=== PATIENT | male | born 1965 | race Caucasian/White ===

== ENCOUNTER 2022-10-18 12:21 | Emergency (ER) | payer OTHER ==
[~2022-10-18] VITALS: Ht 185.4 cm; Wt 95.5 kg
[2022-10-18 13:21] LABS: BASO % 0.3 % (0.0-1.0); EOS # 0.1 10^3/uL (0.0-0.5); EOS % 1.9 % (0.0-3.0); HEMATOCRIT 47.9 % (42.0-52.0); HEMOGLOBIN 15.5 g/dl (13.5-17.5); LYMPH # 1.5 10^3/uL (1.5-5.0); MEAN CORPUSCULAR HEMOGLOBIN 28.4 pg (27.0-33.0); MEAN CORPUSCULAR HGB CONC 32.4 g/dl (32.0-36.5); MEAN CORPUSCULAR VOLUME 87.9 fl (80.0-96.0); MONO # 0.4 10^3/uL (0.0-0.8); MONO % 6.4 % (2.0-8.0); NEUTROPHILS # 4.3 10^3/uL (1.5-8.5); NEUTROPHILS % 67.1 % (36.0-66.0); PLATELET COUNT, AUTOMATED 195 10^3/uL (150-450); RED BLOOD COUNT 5.45 10^6/uL (4.30-6.10); WHITE BLOOD COUNT 6.4 10^3/uL (4.0-10.0)
[2022-10-18] MEDS ORDERED: NS 1,000 ML IV ONE (13:35)
[2022-10-18] MEDS ORDERED: NS 1,000 ML IV SCH (13:35)
[2022-10-18 13:52] LABS: BLOOD UREA NITROGEN 13 MG/DL (9-23); CALCIUM LEVEL 8.7 MG/DL (8.5-10.1); CARBON DIOXIDE LEVEL 27 MMOL/L (20-31); CHLORIDE LEVEL 104 MMOL/L (98-107); GLOMERULAR FILTRATION RATE > 60.0 (>56); GLUCOSE, FASTING 339 MG/DL (60-100); POTASSIUM SERUM 4.2 MMOL/L (3.5-5.1); SODIUM LEVEL 138 MMOL/L (136-145)
[2022-10-18 13:59] LABS: THYROID STIMULATING HORMONE 0.746 uIU/ML (0.55-4.78)
[2022-10-18 14:12] LABS: HEMOGLOBIN A1c 10.8 % (4.0-6.0)
[2022-10-18] MEDS ORDERED: METF500T13 PO (14:25)
[2022-10-18] MEDS ORDERED: HOLTER MONITOR XX (14:35)
[2022-10-18 14:45] VITALS: BP 131/86; TEMP 97.2; O2SAT 98
== END 2022-10-18 14:58 | disposition home or self-care (01) ==
LOC: M ED 12:21 → EDBD 12:21 → M ED 14:58
DX: R00.2 Palpitations (principal); E11.9 Type 2 diabetes mellitus without complications; G47.33 Obstructive sleep apnea (adult) (pediatric); Z87.891 Personal history of nicotine dependence; Z88.5 Allergy status to narcotic agent; Z88.8 Allergy status to other drugs, medicaments and biological substances

== ENCOUNTER → 2023-04-11 | Outpatient (CLI) | payer OTHER ==
[~2023-04-11] MED LIST: HOLTER MONITOR XX; METF500T13 PO
== END ==
LOC: M SLEEP 20:00
PROVIDERS: ATTEND Nurse Practitioner Family
DX: G47.33 Obstructive sleep apnea (adult) (pediatric) (principal)

== ENCOUNTER 2024-01-20 12:22 | Emergency (ER) | payer OTHER ==
[~2024-01-20] VITALS: Ht 188 cm; Wt 99.1 kg
[2024-01-20 12:34] VITALS: TEMP 98.7
[2024-01-20 13:12] LABS: BASO % 0.4 % (0.0-1.0); EOS # 0.1 10^3/uL (0.0-0.5); EOS % 1.7 % (0.0-3.0); HEMATOCRIT 46.2 % (42.0-52.0); HEMOGLOBIN 15.2 g/dl (13.5-17.5); LYMPH # 1.3 10^3/uL (1.5-5.0); LYMPH % 18.4 % (24.0-44.0); MEAN CORPUSCULAR HGB CONC 32.9 g/dl (32.0-36.5); MONO # 0.5 10^3/uL (0.0-0.8); MONO % 6.5 % (2.0-8.0); NEUTROPHILS # 5.2 10^3/uL (1.5-8.5); NEUTROPHILS % 72.7 % (36.0-66.0); PLATELET COUNT, AUTOMATED 181 10^3/uL (150-450); RED BLOOD COUNT 5.25 10^6/uL (4.30-6.10); WHITE BLOOD COUNT 7.1 10^3/uL (4.0-10.0)
[2024-01-20 13:41] LABS: BLOOD UREA NITROGEN 17 MG/DL (9-23); CALCIUM LEVEL 8.8 MG/DL (8.5-10.1); CARBON DIOXIDE LEVEL 26 MMOL/L (20-31); CHLORIDE LEVEL 109 MMOL/L (98-107); CK-MB VALUE MASS 1.8 NG/ML (<3.6); CREATININE FOR GFR 1.09 MG/DL (0.70-1.30); GLOMERULAR FILTRATION RATE > 60.0 (>56); GLUCOSE, FASTING 154 MG/DL (60-100); MAGNESIUM LEVEL 1.8 MG/DL (1.8-2.4); POTASSIUM SERUM 4.2 MMOL/L (3.5-5.1); SODIUM LEVEL 140 MMOL/L (136-145)
[2024-01-20 13:45] LABS: THYROID STIMULATING HORMONE 1.101 uIU/ML (0.55-4.78); THYROXINE (T4) 6.1 UG/DL (4.5-10.9)
[2024-01-20 13:54] LABS: CPK CREATINE PHOSPHOKINASE 199 U/L (46-171)
[2024-01-20 15:06] LABS: CK-MB VALUE MASS 1.9 NG/ML (<3.6)
[2024-01-20 15:12] LABS: MB/CK RELATIVE INDEX 1.07 (< OR =4)
[2024-01-20] MEDS ORDERED: HOME MED LIST COMPLETE! XX SCH (16:35)
[2024-01-20] MEDS ORDERED: ROSU5TAB40 PO (16:35)
[2024-01-20] MEDS ORDERED: DULA3PEN SQ (16:35)
[2024-01-20 23:00] VITALS: BP 134/89; O2SAT 96
== END 2024-01-20 23:54 | disposition home or self-care (01) ==
LOC: EDBD 12:22 → M ED 12:22
DX: R00.2 Palpitations (principal); E11.9 Type 2 diabetes mellitus without complications; E78.5 Hyperlipidemia, unspecified; R94.31 Abnormal electrocardiogram [ECG] [EKG]; Z79.4 Long term (current) use of insulin

== ENCOUNTER → 2024-02-12 | Outpatient (CLI) | payer OTHER ==
[~2024-02-12] MED LIST changes: +DULA3PEN SQ; +ROSU5TAB40 PO
== END ==
LOC: M PLAIMG 07:59
PROVIDERS: ATTEND Registered Nurse
DX: R94.31 Abnormal electrocardiogram [ECG] [EKG] (principal)